=== PATIENT | male | born 1995 | race Caucasian/White ===

== ENCOUNTER 2024-02-25 09:43 | Outpatient (CLI) | payer OTHER, SELFPAY ==
[2024-02-25 10:47] LABS: Liquefaction Semen Complete in 30 min. (<30 minutes); Semen Color Opaque (Grey-opaque); Semen Immotility 10 %; Semen Non-Progressive Motility 10 %; Semen Progressive Motility 80 % (>32); Semen Total Motility 90 (>40% (PM+NP)); Semen Viscosity Not Increased (Not Increa.)
[2024-02-25 10:48] LABS: Semen Morphology Result to Follow; Sperm Count 79.6 Mil/mL (60-150 million/mL)
[2024-02-28 22:19] LABS: Fructose, Semen 279 mg/dL (150-600)
== END 2024-02-25 09:44 | disposition home or self-care (01) ==
LOC: CHSLAB 09:50
PROVIDERS: Visit Provider Obstetrics & Gynecology
DX: Z31.9 Encounter for procreative management, unspecified (principal)
CPT/HCPCS: 82757; 88160; 89320